=== PATIENT | female | born 1975 | race Caucasian/White ===

== ENCOUNTER 2019-05-30 20:04 | Emergency (ER) | payer OTHER ==
[2019-05-30 20:04] VITALS: O2SAT 100
[2019-05-30] MEDS ORDERED: AMOXIL/CLAVULANATE 875/125 TAB PO ONE (20:34)
[2019-05-30] MEDS ORDERED: TDAP VACCINE 0.5 ML SUS IM ONE ×2 (20:35→21:05)
[2019-05-30] MEDS ORDERED: AUGMENTIN(FRIDGE) 400 MG/5 ML ONE (20:35)
[2019-05-30 20:55] VITALS: BP 132/88; PULSE 95; RESP 16; TEMP 99.3
[2019-05-30] MEDS ORDERED: BACITRACIN 500 U/GM OIN TOP ONE ×2 (21:02)
== END 2019-05-30 21:21 | disposition home or self-care (01) | DRG 605 ==
LOC: ED 20:04
DX: S51.851A Open bite of right forearm, initial encounter (principal); W54.0XXA Bitten by dog, initial encounter; S51.831A Puncture wound without foreign body of right forearm, initial encounter
CPT/HCPCS: 90471; 90715; 99282; 99283; A9270-GY